=== PATIENT | female | born 1965 | race Caucasian/White ===

== ENCOUNTER 2019-05-09 10:55 | Emergency (ER) | payer OTHER ==
[~2019-05-09] VITALS: Ht 162.6 cm; Wt 59.1 kg
[2019-05-09 11:10] VITALS: Ht 162.6 cm; Wt 59.1 kg
[2019-05-09] MEDS ORDERED: VIBRAMYCIN 100100 MG PO (12:23)
[2019-05-09] MEDS ORDERED: VOLTAREN75 MG PO (12:23)
[2019-05-09] MEDS ORDERED: ZPAK PO (12:34)
[2019-05-09 13:27] VITALS: BP 118/59
[2019-05-13 13:10] LABS: EHRLICHIA CHAFF IGG Negative (Neg:<1:64); EHRLICHIA CHAFF IGM Negative (Neg:<1:20); HGE IGG TITER Negative (Neg:<1:64); HGE IGM TITER Negative (Neg:<1:20)
[2019-05-18 09:11] LABS: F. TULARENSIS - IGG Negative (Negative); F. TULARENSIS - IGM Negative (Negative)
== END 2019-05-09 13:46 | disposition home or self-care (01) ==
LOC: D.ER 10:55
PROVIDERS: Family Medicine
DX: J02.0 Streptococcal pharyngitis (principal); M79.18 Myalgia, other site; S00.96XA Insect bite (nonvenomous) of unspecified part of head, initial encounter; Y93.89 Activity, other specified; Y92.89 Other specified places as the place of occurrence of the external cause